=== PATIENT | male | born 1980 | race Caucasian/White ===

== ENCOUNTER 2018-02-10 09:36 | Emergency (ER) | payer SELFPAY ==
[2018-02-10] MEDS ORDERED: Clindamycin 600 MG IVPREMIX(* 600 MG/50 ML SDV IV ONE (10:36)
[2018-02-10 11:06] LABS: ABS Basophils 0.1 10^3/ul (0-0.2); ABS Eosinophils 0.4 10^3/ul (0-0.6); ABS Monocytes 0.7 10^3/ul (0-0.8); ABS Neutrophils 5.3 10^3/ul (1.5-7.7); ABS Nucleated RBC 0 10^3/ul; Hematocrit 43 % (42-52); Hemoglobin 14.7 g/dl (14.0-18.0); Lymphocyte % 31.1 % (25-47); Mean Corpuscular HGB Conc 35 g/dl (31-36); Mean Corpuscular Hemoglobin 30 pg (27-31); Mean Corpuscular Volume 87 fL (80-94); Mean Platelet Volume 7.2 um3 (7.4-10.4); Nucleated Red Blood Cells % 0.1; Platelet Count 266 10^3/ul (150-450); Red Blood Count 4.88 10^6/ul (4.00-5.40); Red Cell Distribution Width 13 % (10.5-15); White Blood Count 9.5 10^3/ul (3.5-10.8)
[2018-02-10 11:56] LABS: EGFR Non-African American 75.4 (>60)
[2018-02-10] MEDS ORDERED: Ketorolac INJ* 30 MG/ML 1 ML VIAL IV PUSH ONE (11:56)
[2018-02-10] MEDS ORDERED: Clindamycin CAP* 150 MG PO ONE (12:03)
--- NOTE | 2018-02-10 12:04 | ED ---
Skin Complaint - HPI Summary HPI Summary: Pt here with right upper extremity "spider bite". He reports he woke up yesterday morning with a red irritated bump on the lateral aspect of his wrist. This is been sore itchy and's a little swollen. He's here today as he's had some streaking up his arm. He denies fever, chills, arm swelling, numbness, tingling, weakness. He has been taking ibuprofen daily for generalized bodyaches. He is resident at [facility] and was recently admitted there. He had baseline labs done yesterday. Will recheck today and compared to yesterday. No known history of staph or MRSA. - History of Current Complaint Chief Complaint: EDRashSkinAbscess Time Seen by Provider: 02/10/18 10:00 Stated Complaint: RT ARM SWELLING Hx Obtained From: Patient Pain Intensity: 2 - Allergy/Home Medications Allergies/Adverse Reactions: Allergies Allergy/AdvReac Type Severity Reaction Status Date / Time amoxicillin Allergy Hives Verified 02/10/18 09:51 cephalexin [From Keflex] Allergy Hives/Diff. Verified 02/10/18 09:51 Breathing/I tching Home Medications: Home Medications Acetaminophen TAB* [Tylenol TAB*] 325 - 650 mg PO Q6H PRN MDD 3500mg 02/10/18 [ History Confirmed 02/10/18] Aspirin TAB* [Aspirin 325 MG TAB*] 325 mg PO DAILY PRN 02/10/18 [History Confirmed 02/10/18] Bismuth Subsalicylate [Bismuth] 524 mg PO Q30M PRN MDD 8 02/10/18 [History Confirmed 02/10/18] Calcium Carbonate CHEW TAB* [Tums*] 500 - 1,000 mg PO BID PRN 02/10/18 [History Confirmed 02/10/18] Docusate CAP* [Colace Cap*] 100 mg PO BID PRN 02/10/18 [History Confirmed ] Eucalyptus/Menthol [Christine Cough Drops] 1 evelyn MT Q2H PRN 02/10/18 [History Confirmed 02/10/18] Gabapentin CAP(*) [Neurontin 300 CAP(*)] 600 mg PO TID 02/10/18 [History Confirmed 02/10/18] Ibuprofen TAB* [Advil TAB*] 200 mg PO Q6H PRN 02/10/18 [History Confirmed ] Magnesium Hydroxide LIQ* [Milk of Magnesia LIQ*] 30 ml PO DAILY PRN 02/10/18 [ History Confirmed 02/10/18] Melatonin (NF) 5 mg PO BEDTIME PRN 02/10/18 [History Confirmed 02/10/18] Multivitamins/Minerals TAB* [Theragran/minerals TAB*] 1 tab PO DAILY 02/10/18 [ History Confirmed 02/10/18] Nicotine GUM* 16 mg PO BID 02/10/18 [History Confirmed 02/10/18] Nicotine PATCH 14 MG/24 HR* 14 mg TRANSDERM DAILY 02/10/18 [History Confirmed ] Polyethylene Glycol 3350* [Miralax*] 17 gm PO DAILY PRN 02/10/18 [History Confirmed 02/10/18] Saline NASAL SPRAY 0.65%* [Sodium Chloride 0.65% Nasal [place]*] 1 - 2 spray BOTH NARES Q4H PRN 02/10/18 [History Confirmed 02/10/18] diPHENhydraMINE PO* [Benadryl PO 25 MG TAB*] 25 - 50 mg PO Q6H PRN 02/10/18 [ History Confirmed 02/10/18] guaiFENesin ER TAB [Mucinex*] 600 - 1,200 mg PO Q12H PRN 02/10/18 [History Confirmed 02/10/18] hydrOXYzine HCL TAB* [Atarax TAB 50 MG *] 50 mg PO Q4H PRN 02/10/18 [History Confirmed 02/10/18] traZODone TAB* [Desyrel TAB*] 50 mg PO BEDTIME PRN 02/10/18 [History Confirmed 02/10/18] PMH/Surg Hx/FS Hx/Imm Hx Previously Healthy: Yes Endocrine/Hematology History: Denies: Hx Anticoagulant Therapy, Hx Blood Disorders, Autoimmune Disease Psychiatric History: 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 Infectious Disease History: No Infectious Disease History: Denies: Hx of Known/Suspected MRSA, Traveled Outside the [place] in Last 30 Days - Social History Occupation: Unemployed Lives: [facility] Alcohol Use: Daily Alcohol Amount: PINT OF ALCOHOL - hasn't drank since at [facility] Hx Substance Use: No Substance Use Type: Reports: None Hx Tobacco Use: Yes - not currently Smoking Status (MU): Former Smoker - quit since in [facility] - nicotine patch Review of Systems Constitutional: Negative Negative: Fever, Chills, Fatigue Negative: Chest Pain Negative: Shortness Of Breath Negative: Vomiting, Nausea Positive: no symptoms reported Musculoskeletal: Negative Skin: Other - wound Rt wrist/forearm Neurological: Negative Psychological: Normal All Other Systems Reviewed And Are Negative: Yes Physical Exam Triage Information Reviewed: Yes Vital Signs On Initial Exam: Initial Vitals Temp Pulse Resp BP Pulse Ox 98.4 F 90 18 146/90 99 02/10/18 09:47 02/10/18 09:47 02/10/18 09:47 02/10/18 09:47 02/10/18 09:47 Vital Signs Reviewed: Yes Appearance: Positive: Well-Appearing, No Pain Distress, Well-Nourished Skin: Positive: Warm, Skin Color Reflects Adequate Perfusion, Dry - mild focal erythema about wrist - streaking frm wound and proximally along forearm - does not pass over A/C/elbow joint - no edema Head/Face: Positive: Normal Head/Face Inspection Eyes: Positive: EOMI ENT: Positive: Hearing grossly normal Respiratory/Lung Sounds: Positive: Breath Sounds Present Cardiovascular: Positive: Pulses are Symmetrical in both Upper and Lower Extremities Musculoskeletal: Positive: Normal, Strength/ROM Intact Neurological: Positive: Normal, Sensory/Motor Intact, Alert, Oriented to Person Place, Time, CN Intact II-III Psychiatric: Positive: Normal Diagnostics - Vital Signs Vital Signs Temp Pulse Resp BP Pulse Ox 02/10/18 09:47 98.4 F 90 18 146/90 99 - Laboratory Lab Results: Lab Results 02/10/18 02/10/18 02/10/18 Range/Units 10:56 10:56 10:56 WBC 9.5 (3.5-10.8) 10^3/ul RBC 4.88 (4.00-5.40) 10^6/ul Hgb 14.7 (14.0-18.0) g/dl Hct 43 (42-52) % MCV 87 (80-94) fL MCH 30 (27-31) pg MCHC 35 (31-36) g/dl RDW 13 (10.5-15) % Plt Count 266 (150-450) 10^3/ul MPV 7.2 L (7.4-10.4) um3 Neut % (Auto) 56.3 (38-83) % Lymph % (Auto) 31.1 (25-47) % Glynn % (Auto) 7.8 H (0-7) % Eos % (Auto) 4.0 (0-6) % Baso % (Auto) 0.8 (0-2) % Absolute Neuts (auto) 5.3 (1.5-7.7) 10^3/ul Absolute Lymphs (auto) 3.0 (1.0-4.8) 10^3/ul Absolute Monos (auto) 0.7 (0-0.8) 10^3/ul Absolute Eos (auto) 0.4 (0-0.6) 10^3/ul Absolute Basos (auto) 0.1 (0-0.2) 10^3/ul Absolute Nucleated RBC 0 10^3/ul Nucleated RBC % 0.1 Sodium 136 (135-145) mmol/L Potassium 4.6 (3.5-5.0) mmol/L Chloride 101 (101-111) mmol/L Carbon Dioxide 29 (22-32) mmol/L Anion Gap 6 (2-11) mmol/L BUN 16 (6-24) mg/dL Creatinine 1.11 (0.67-1.17) mg/dL Est GFR ( Amer) 91.2 (>60) Est GFR (Non-Af Amer) 75.4 (>60) BUN/Creatinine Ratio 14.4 (8-20) Glucose 83 (70-100) mg/dL Lactic Acid 0.9 (0.5-2.0) mmol/L Calcium 9.6 (8.6-10.3) mg/dL Total Bilirubin 0.30 (0.2-1.0) mg/dL AST 39 (13-39) U/L ALT 25 (7-52) U/L Alkaline Phosphatase 64 (34-104) U/L C-Reactive Protein 4.73 (<8.01) mg/L Total Protein 6.9 (6.4-8.9) g/dL Albumin 4.4 (3.2-5.2) g/dL Globulin 2.5 (2-4) g/dL Albumin/Globulin Ratio 1.8 (1-3) Result Diagrams: 02/10/18 10:56 02/10/18 10:56 Lab Statement: Any lab studies that have been ordered have been reviewed, and results considered in the medical decision making process. Course/Dx - Course Course Of Treatment: Labs are w/o concern for sepsis. WIll initiated anbx and have pt f/u closely w/ outpt care provider. Reviewed danger s/sx of when to return to ED. Pt agrees w/ plan. - Diagnoses Provider Diagnoses: Cellulitis Discharge - Sign-Out/Discharge Documenting (check all that apply): Patient Departure - Discharge Plan Condition: Stable Disposition: HOME Prescriptions: Clindamycin HCl 300 mg PO TID #27 capsule Patient Education Materials: Cellulitis (ED) Referrals: Eusebia Cisneros MD [Primary Care Provider] - Additional Instructions: Complete antibiotics as directed Follow-up with PCP *If you develop fever, chills, vomiting, arm stiffness/swelling, return to ED - Billing Disposition and Condition Condition: STABLE Disposition: Home
[2018-02-10 12:39] VITALS: BP 136/70
== END 2018-02-10 12:37 | disposition home or self-care (01) ==
LOC: ED 09:36
DX: L03.113 Cellulitis of right upper limb (principal); Z87.891 Personal history of nicotine dependence; Z88.3 Allergy status to other anti-infective agents
CPT/HCPCS: 36415; 80053; 83605; 85025; 86140; 87040; 96374; 96375; 99282; A9270-GY; J1885